=== PATIENT | female | born 1965 | race Asian ===

== ENCOUNTER 2016-05-10 07:08 | Day surgery (SDC) | payer OTHER ==
[2016-05-10] MEDS ORDERED: LACTATED RINGERS 1,000 ML ONE (07:24)
[2016-05-10] MEDS ORDERED: IV START KIT ONE (07:24)
[2016-05-10] MEDS ORDERED: LACTATED RINGERS 1,000 ML IV SCH ×3 (07:39→10:41)
[2016-05-10] MEDS ORDERED: LIDOCAINE 1% 2 ML VIAL ID PRN (07:39)
[2016-05-10] MEDS ORDERED: CEFAZOLIN SODIUM 2 GRAM PREMIX 2 G in Premix (D5W) 100 ml 1 EACH IV PRN (07:39)
[2016-05-10] MEDS ORDERED: CEFAZOLIN SODIUM 1 GRAM PREMIX 50 ML IV ONE (07:46)
[2016-05-10] MEDS ORDERED: MIDAZOLAM HCL 1 MG/ML 2ML VIAL ONE (08:27)
[2016-05-10] MEDS ORDERED: PROPOFOL 20 ML IV ONE (08:27)
[2016-05-10] MEDS ORDERED: FENTANYL 100 MCG/2 ML VIAL ONE ×2 (08:27→10:07)
[2016-05-10] MEDS ORDERED: LIDOCAINE 1% (PRES FREE) 30 ML VIAL ONE (08:34)
[2016-05-10] MEDS ORDERED: ONDANSETRON 4 MG/2ML 2 ML VIAL ONE (08:52)
[2016-05-10] MEDS ORDERED: DEXAMETHASONE SOD PHOS 4 MG/1 ML VIAL ONE (08:52)
[2016-05-10] MEDS ORDERED: EPHEDRINE SULFATE UD SYR 25 MG 25 MG/5 ML SYRINGE IV ONE ×2 (09:00→09:28)
[2016-05-10] MEDS ORDERED: ATROPINE SULFATE 0.4 MG/1 ML VIAL IV PRN (09:03)
[2016-05-10] MEDS ORDERED: ONDANSETRON 4 MG/2ML 2 ML VIAL IV PRN ×2 (09:03→10:41)
[2016-05-10] MEDS ORDERED: PROMETHAZINE HCL 25 MG/ML VIAL IM PRN (09:03)
[2016-05-10] MEDS ORDERED: NALOXONE HCL 0.4 MG/ML VIAL IV PRN (09:03)
[2016-05-10] MEDS ORDERED: KETOROLAC TROMETHAMINE 30 MG/ML 1 ML VIAL ONE (09:53)
--- NOTE | 2016-05-10 10:04 | PCMBPN ---
Brief Post Op Note: Date of Procedure: 05/10/16 Start Time: Preoperative Diagnosis: 1. Right leg mass Postoperative Diagnosis: 1. Same Procedure: Excision right leg mass Surgeon: Leia Bansal MD Assist:Светлана Wright Anesthesia: MAC w/ local Findings: see dictation Condition: stable Complications: none IV Fluids: see anesthesia report Urine Output: not recorded Estimated Blood Loss: 50 mLs Tourniquet Time: N/A Specimens: Right leg lipoma Implants: n/a Drains: [N/A]
[2016-05-10] MEDS: FENTANYL 100 MCG/2 ML VIAL IV PRN ×2 (10:09→10:21)
[2016-05-10] MEDS ORDERED: HYDROMORPHONE HCL 1 MG/ML SYRINGE IV PRN (10:41)
[2016-05-10] MEDS ORDERED: HYDROMORPHONE HCL 2 MG TABLET PO PRN (10:41)
--- NOTE | 2016-05-10 15:21 | OP ---
EDISON MONTIEL [id number] : 1965 DATE OF SERVICE: May 10, 2016 PREOPERATIVE DIAGNOSIS: Right leg mass. POSTOPERATIVE DIAGNOSIS: Right leg mass. PROCEDURE PERFORMED: EXCISION RIGHT LEG MASS. SURGEON: Leia Bansal M.D. QUILLER OPERATOR: Rudi Yi ANESTHESIA: Monitored anesthesia care with local anesthetic. FINDINGS: A large, about 10 cm in diameter, fatty tissue mass about 3 cm deep in the right medial leg. TECHNIQUE: The patient was taken back to the operating room, placed under monitored anesthesia care. The right leg was prepped and draped in sterile surgical fashion. Local anesthetic was placed around the dermis over the top of the mass and a #15 blade scalpel was used to open the incision over a prior scar on the medial side of the leg. Electrocautery was used for hemostasis and to open up the tissue. We could not find a good capsule around the mass, so I just opened up the fatty tissue and it from the surrounding tissue leaving a little bit of fatty tissue on the skin and following the area of the mass as could be palpated and visualized on the skin and excised the mass in whole. Peeled it off of the skin and medially it was very adherent to a group of blood vessels, and I peeled it off of the blood vessels. I did have a little bit of bleeding around this area from branches of the blood vessels. I took care of that with electrocautery. Removed the mass in whole and sent it for pathology and then used electrocautery for hemostasis. I irrigated the cavity and then closed the deep dermis with #3-0 Vicryl and closed the skin with demian and used a vacuum dressing to hopefully suction all the fluid that will collect under the skin. The patient was then awakened and returned to the recovery room in stable condition. All needle, instrument and sponge counts were correct at the end of the case.
--- NOTE | 2016-05-12 12:21 | SURGPATH ---
[facility] [address] [place] [id number] Patient Name: EDISON MONTIEL MR#: [id number] : 1965 Gender: F Specimen #: [id number] Collected: 05/10/2016 Received: 05/11/2016 Reported: 05/12/2016 Submitting Phys: KONRAD WHITTINGTON Copy To Phys: ANAMARIA MOYA [facility] Clinical History / Pre-Operative Diagnosis: LIPOMA Specimen Source / Surgical Procedure Performed: RIGHT LOWER LEG MEDIAL ANTERIOR LIPOMA Interpretation: SOFT TISSUE, RIGHT ANTERIOR LEG, EXCISION: - LIPOMA Electronically Signed Out Bianca Bowers M.D. Gross Description: The specimen is received in a formalin filled container labeled with the patient's name and "right leg lipoma". A lobular excision of yellow-velez, fibrofatty soft tissue is 10.0 x 10.0 x 4.5 cm and 213 g. The surgical margins are inked black. Sectioning reveals lobular yellow adipose tissue throughout. Six phlebotomy services representative sections are submitted in cassettes A-F. Gelacio Conti PDay Microscopic Description: Sections show fragments of lobular mature adipose tissue without cytologic atypia. 1: [id number] D17.23
== END 2016-05-10 12:15 | disposition home or self-care (01) ==
LOC: SDC 07:08
PROVIDERS: ATTEND Surgery
PROC: 0HQKXZZ Repair Right Lower Leg Skin, External Approach (ICD-10-PCS; principal; 2016-05-10)
PROC: 0HBKXZX Excision of Right Lower Leg Skin, External Approach, Diagnostic (ICD-10-PCS; 2016-05-10)
DX: D17.23 Benign lipomatous neoplasm of skin and subcutaneous tissue of right leg (principal); I10 Essential (primary) hypertension; E66.9 Obesity, unspecified; K29.70 Gastritis, unspecified, without bleeding; Z87.442 Personal history of urinary calculi
CPT/HCPCS: 11406; 12034; J0690; A9270; J3010 ×3; J1100; J1885; J2250; J2001; J2405; J7120